=== PATIENT | female | born 1995 ===

== ENCOUNTER 2018-07-05 13:23 | Emergency (ER) | payer OTHER ==
[2018-07-05 13:50] VITALS: BP 130/80; PULSE 93; RESP 16; TEMP 98.6; O2SAT 100
[2018-07-05] MEDS ORDERED: Naproxen 500 MG TAB PO ONE (14:11)
--- NOTE | 2018-07-05 14:48 | ED PDOC ---
HPI: Headache Time Seen by Provider: 07/05/18 13:52 Chief Complaint (Nursing): Headache Chief Complaint (Provider): Headache History Per: [employer] Auto (UZIEL Chavira ) History/Exam Limitations: no limitations Onset/Duration Of Symptoms: Days (x5 days) Current Symptoms Are (Timing): Still Present Additional Complaint(s): Otoniel Hager is a 22 year old female with a past medical history of hernia repair, who presents to the emergency department complaining of a small bump on the right side of her head, x5 days ago. Patient states she was sleeping on her right side when she felt the bump and she states she has had pain to that sight since. She reports that she has been taking Advil and her last dose was this morning. Patient denies any head injury, fever, chills, nausea, vomiting, LOC, or discharge. PMD: no provider Past Medical History Reviewed: Historical Data, Nursing Documentation, Vital Signs Vital Signs: Last Vital Signs Temp 98.6 F 07/05/18 13:45 Pulse 93 H 07/05/18 13:45 Resp 16 07/05/18 13:45 BP 130/80 07/05/18 13:45 Pulse Ox 100 07/05/18 13:45 - Medical History PMH: No Chronic Diseases - Surgical History Surgical History: Hernia Repair (Left inguinal hernia repair) - Family History Family History: States: Unknown Family Hx - Home Medications Home Medications: Ambulatory Orders Medication Instructions Recorded Ondansetron ODT [Zofran ODT] 4 mg PO Q8 PRN #12 odt 06/30/15 Metoclopramide [Reglan] 10 mg PO TID PRN #10 tab 07/05/18 - Allergies Allergies/Adverse Reactions: Allergies Allergy/AdvReac Type Severity Reaction Status Date / Time No Known Allergies Allergy Verified 07/05/18 13:46 Review of Systems ROS Statement: Except As Marked, All Systems Reviewed And Found Negative Constitutional: Negative for: Fever, Chills Gastrointestinal: Negative for: Nausea, Vomiting Neurological: Positive for: Headache. Negative for: Other (LOC) Physical Exam - Reviewed Nursing Documentation Reviewed: Yes Vital Signs Reviewed: Yes - Physical Exam Appears: Positive for: Non-toxic, No Acute Distress Head Exam: Positive for: ATRAUMATIC (no lesions, swelling, break in skin integrity, erythema), NORMOCEPHALIC Eye Exam: Positive for: Normal appearance, EOMI, PERRL ENT: Positive for: Normal ENT Inspection Neurologic/Psych: Positive for: Gait (steady and unassisted). Negative for: Aphasia, Other (slurred speech) - ECG O2 Sat by Pulse Oximetry: 100 (RA) Pulse Ox Interpretation: Normal Medical Decision Making Medical Decision Making: Time: 141 Plan: --CT head without contrast --ED urine --Naproxen 500 mg PO Time: 152 --Patient is no acute distress and has been seen talking on her cell phone. Patient was smiling, happy but still reports to have a headache and is now feeling nauseous. --Reglan PO ordered pending CT report. Time: 153 CT Head FINDINGS: HEMORRHAGE: No intracranial hemorrhage. BRAIN: No mass effect or edema. No atrophy or chronic microvascular ischemic changes. VENTRICLES: Unremarkable. No hydrocephalus. CALVARIUM: Unremarkable. PARANASAL SINUSES: Unremarkable as visualized. No significant inflammatory changes. MASTOID AIR CELLS: Unremarkable as visualized. No inflammatory changes. OTHER FINDINGS: None. IMPRESSION: Normal CT of the Head. Time: 161 --Patient has good relief of headache and was informed of results. Scribe Attestation: Documented by Davon Awan, acting as a scribe for Ben Blanco Provider Scribe Attestation: All medical record entries made by the Scribe were at my direction and personally dictated by me. I have reviewed the chart and agree that the record accurately reflects my personal performance of the history, physical exam, medical decision making, and the department course for this patient. I have also personally directed, reviewed, and agree with the discharge instructions and disposition. Disposition - Clinical Impression Clinical Impression: Acute headache - Patient ED Disposition Is Patient to be Admitted: No - Disposition Referrals: [facility] [Outside] [facility] [Outside] Disposition: Routine/Home Disposition Time: 16:10 Condition: IMPROVED Additional Instructions: FOLLOW UP WITH [facility] FOR FURTHER EVALUATION RETURN TO ED IMMEDIATELY IF SYMPTOMS WORSEN OTONIEL HAGER, thank you for letting us take care of you today. Your provider was Cherrie Lara MD and you were treated for HEAD PAIIN. The emergency medical care you received today was directed at your acute symptoms. If you were prescribed any medication, please fill it and take as directed. It may take several days for your symptoms to resolve. Return to the Emergency Department if your symptoms worsen, do not improve, or if you have any other problems. Please contact your doctor or call one of the physicians/clinics you have been referred to that are listed on the Patient Visit Information form that is included in your discharge packet. Bring any paperwork you were given at discharge with you along with any medications you are taking to your follow up visit. Our treatment cannot replace ongoing medical care by a primary care provider outside of the emergency department. Thank you for allowing the [facility] team to be part of your care today. If you had an X-Ray or CT scan: A Radiologist will review the ED reading if any change in treatment is needed we will contact you. If you had a blood, urine, or wound culture: It will take several days for the results, if any change in treatment is needed we will contact you. If you had an STI test: It will take 48 hours for the results. Please call after 1 week if you have not heard back. Prescriptions: Metoclopramide [Reglan] 10 mg PO TID PRN #10 tab PRN Reason: nausea or headache Instructions: Acute Headache (ED) Print Language: IRANIAN
--- NOTE | 2018-07-05 15:36 | CT ---
Date of service: 07/05/2018 PROCEDURE: CT HEAD WITHOUT CONTRAST. HISTORY: trauma COMPARISON: None available. TECHNIQUE: Axial computed tomography images were obtained through the head/brain without intravenous contrast. Radiation dose: Total exam DLP = 801.12 mGy-cm. This CT exam was performed using one or more of the following dose reduction techniques: Automated exposure control, adjustment of the mA and/or kV according to patient size, and/or use of iterative reconstruction technique. FINDINGS: HEMORRHAGE: No intracranial hemorrhage. BRAIN: No mass effect or edema. No atrophy or chronic microvascular ischemic changes. VENTRICLES: Unremarkable. No hydrocephalus. CALVARIUM: Unremarkable. PARANASAL SINUSES: Unremarkable as visualized. No significant inflammatory changes. MASTOID AIR CELLS: Unremarkable as visualized. No inflammatory changes. OTHER FINDINGS: None. IMPRESSION: Normal CT of the Head.
== END 2018-07-05 16:33 | disposition home or self-care (01) ==
LOC: H.ER 13:23
DX: R51 Headache (principal)